=== PATIENT | female | born 1960 | race Caucasian/White ===

== ENCOUNTER 2019-03-18 11:20 | Emergency (ER) | payer BC, MEDICAID ==
[~2019-03-18] VITALS: Ht 162.6 cm; Wt 74.4 kg
[2019-03-18 11:29] VITALS: Ht 162.6 cm; Wt 74.4 kg
[2019-03-18] MEDS ORDERED: SIMV20TA PO (12:26)
[2019-03-18 13:44] VITALS: BP 135/75; PULSE 62; RESP 16
--- NOTE | 2019-03-18 13:49 | ERD ---
ER Documentation Chief Complaint Chief Complaint Pt with c/o AP since eysterday, blood in stool today. HPI This is a very pleasant 58-year-old female who presents for evaluation of intermittent umbilical abdominal pain. She also had a single episode of bright red blood per rectum this morning, she denies fever, she has no cardiac history, and she describes her pain as dull and mild. She denies urinary symptoms, currently her pain is controlled. She has not had any nausea or vomiting. ROS All systems reviewed and are negative except as per history of present illness. Medications Home Meds Reported Medications Simvastatin* (Zocor*) 20 Mg Tablet, 20 MG PO QHS, #30 TAB 03/18/19 Allergies Allergies: Coded Allergies: No Known Allergy (Verified , 03/18/19) PMhx/Soc Hx Miscellaneous Medical Probl: Yes (HIGH CHOLESTEROL) Hx Alcohol Use: No Hx Substance Use: No Hx Tobacco Use: No Smoking Status: Never smoker Physical Exam Vitals Vital Signs Date Temp Pulse Resp B/P (MAP) Pulse Ox O2 O2 Flow FiO2 Time Delivery Rate 03/18/19 98.0 62 18 137/61 97 11:29 (86) Physical Exam Const: Well-developed, well-nourished nontoxic Head: Atraumatic Eyes: Normal Conjunctiva ENT: Normal External Ears, Nose and Mouth. Neck: Full range of motion. No meningismus. Resp: Clear to auscultation bilaterally Cardio: Regular rate and rhythm, no murmurs Abd: Soft, non tender, non distended, no rebound or guarding. Normal bowel sounds exam: Performed with tech corrosion technician. No evidence of external hemorrhoids, no evidence of active bleeding. Skin: No petechiae or rashes Back: No midline or flank tenderness Ext: No cyanosis, or edema Neur: Awake and alert Psych: Normal Mood and Affect Result Diagram: 03/18/19 1225 03/18/19 1225 Results 24 hrs Laboratory Tests Test 03/18/19 12:10 03/18/19 12:25 Urine Color YELLOW Urine Clarity CLEAR Urine pH 5.0 Urine Specific [place] 1.026 Urine Ketones NEGATIVE mg/dL Urine Nitrite NEGATIVE mg/dL Urine Bilirubin NEGATIVE mg/dL Urine Urobilinogen NEGATIVE mg/dL Urine Leukocyte Esterase NEGATIVE Ed[place]/ul Urine Hemoglobin NEGATIVE mg/dL Urine Glucose NEGATIVE mg/dL Urine Total Protein NEGATIVE mg/dl White Blood Count 7.9 10^3/ul Red Blood Count 4.90 10^6/ul Hemoglobin 14.4 g/dl Hematocrit 43.8 % Mean Corpuscular Volume 89.4 fl Mean Corpuscular Hemoglobin 29.4 pg Mean Corpuscular Hemoglobin Concent 32.9 g/dl Red Cell Distribution Width 12.8 % Platelet Count 214 10^3/UL Mean Platelet Volume 10.7 fl Immature Granulocytes % 0.400 % Neutrophils % 69.7 % Lymphocytes % 22.4 % Monocytes % 6.1 % Eosinophils % 0.9 % Basophils % 0.5 % Nucleated Red Blood Cells % 0.0 /100WBC Immature Granulocytes # 0.030 10^3/ul Neutrophils # 5.5 10^3/ul Lymphocytes # 1.8 10^3/ul Monocytes # 0.5 10^3/ul Eosinophils # 0.1 10^3/ul Basophils # 0.0 10^3/ul Nucleated Red Blood Cells # 0.0 10^3/ul Prothrombin Time 12.5 Sec Prothrombin Time Ratio 1.0 INR International Normalized Ratio 0.92 Sodium Level 139 mmol/L Potassium Level 3.8 mmol/L Chloride Level 108 mmol/L Carbon Dioxide Level 24 mmol/L Anion Gap 7 Blood Urea Nitrogen 18 mg/dl Creatinine 0.65 mg/dl Est Glomerular Filtrat Rate mL/min > 60 mL/min Glucose Level 96 mg/dl Calcium Level 9.3 mg/dl Total Bilirubin 0.5 mg/dl Direct Bilirubin 0.00 mg/dl Indirect Bilirubin 0.5 mg/dl Aspartate Amino Transf (AST/SGOT) 22 IU/L Alanine Aminotransferase (ALT/SGPT) 25 IU/L Alkaline Phosphatase 77 IU/L Troponin I < 0.012 ng/ml Total Protein 7.1 g/dl Albumin 4.0 g/dl Globulin 3.10 g/dl Albumin/Globulin Ratio 1.29 Lipase 181 U/L Procedures/MDM 58-year-old female presents for relation of intermittent abdominal pain, as well as single episode of rectal bleeding. On exam patient was well appearing and nontoxic, she had no peritoneal signs on abdominal exam, and did not have a history of pain out of proportion, additionally she has no cardiac history or history of ischemic disease, thus I do not suspect mesenteric ischemia. Otherwise her work-up was overall unremarkable, and her CT of the pelvis was negative. She had a colonoscopy about 5 years ago, at this point the etiology of her symptoms are unclear, however I do not suspect a surgical abdomen, and as the patient is tolerating oral intake, and was otherwise well-appearing, I feel that she is stable for outpatient management at discharge she was in no distress. Departure Diagnosis: Primary Impression: Abdominal pain Abdominal location: unspecified location Qualified Codes: R10.9 - Unspecified abdominal pain Additional Impression: Rectal bleeding Condition: Stable LEONEL HERNANDEZ MD Mar 18, 2019 13:49
[2019-03-18] MEDS ORDERED: FAMO-96 PO (13:50)
== END 2019-03-18 13:54 | disposition home or self-care (01) ==
LOC: E/R 11:20
DX: K62.5 Hemorrhage of anus and rectum (principal)
CPT/HCPCS: 71045; 74176; 80053; 81003; 83690; 84484; 85025; 85610; 93005